=== PATIENT | female | born 1930 | race Caucasian/White ===

== ENCOUNTER → 2016-06-06 | Outpatient (CLI) | payer MEDICAID ==
[2016-06-06 16:46] LABS: AEROMONAS NOT DETECTED (NOT DETECTE); ASTROVIRUS NOT DETECTED (NOT DETECTE); CYCLOSPORA CAYETANENSIS NOT DETECTED (NOT DETECTE); E COLI O157 NOT DETECTED (NOT DETECTE); ENTEROAGGREGATIVE E COLI NOT DETECTED (NOT DETECTE); ENTEROPATHOGENIC E COLI NOT DETECTED (NOT DETECTE); ENTEROTOXIGENIC E COLI NOT DETECTED (NOT DETECTE); NOROVIRUS NOT DETECTED (NOT DETECTE); SAPOVIRUS NOT DETECTED (NOT DETECTE); SHIGA-LIKE TOXIN PROD. E COLI NOT DETECTED (NOT DETECTE); SHIGELLA/ENTEROINVASIVE E COLI NOT DETECTED (NOT DETECTE); VIBRIO CHOLERAE NOT DETECTED (NOT DETECTE)
[2016-06-06 19:14] LABS: STOOL OCCULT BLOOD POSITIVE (NEG)
== END ==
LOC: LAB 16:44
PROVIDERS: Emergency Medicine
DX: R19.7 Diarrhea, unspecified (principal); K92.1 Melena

== ENCOUNTER → 2016-10-23 | Outpatient (CLI) | payer MEDICARE, MEDICAID ==
[~2016-10-23] MED LIST: ACETAMINOPHEN &1 TA1 PO; ACETAMINOPHEN500 M3 PO; ADVAIR 250/5028 PUFF IN; CLARITIN 10MG T10 MG PO; HYDROXYZINE HCL25 M1 PO; IMODIUM A-D2 M3 PO; INVANZ 1 GM1 GM IM; LEXAPRO 10 MG T10 MG PO; LIQUITEARS 15 M15 M1 OP; LISINOPRIL 10MG10 MG PO; METFORMIN500 MG PO; NATURAL VITAM1000 MG PO; NORCO1 TAB PO; OMEPRAZOLE40 MG PO; PEPCID 20MG TAB20 MG PO; SYNTHROID 0.0.075 MG PO; TRAZODONE 50MG50 MG PO; TYLENOL325 MG PO; VENTOLIN H0.09 MG/AC IH; VOLTAREN75 MG PO; XANAX 0.25MG0.25 MG PO; ZOFRAN ODT4 MG PO
--- NOTE | 2016-10-23 15:14 | ST MODIFIED BARIUM SWALLOW ---
SUBJECTIVE-DYSPHAGIA Date: 10/23/16 Time: 1430 Eval Type: Initial Certification - Admitted Date: Primary Diagnosis: Reason for Consult: DYSPHAGIA Pt/Caregiver Concerns: COUGHING DURING MEALS Onset of symptoms- Symptoms have worsened? NO improved? NO resolved? NO since onset. Current Diet: MECHANICAL SOFT/NECTAR THICK LIQUIDS Allergies Coded Allergies: levofloxacin (Intermediate, I-ITCHING 09/09/16) Penicillins (Mild, 09/09/16) Sulfa (Sulfonamide Antibiotics) (Mild, 06/28/16) ciprofloxacin (From CIPRO) (Mild, 06/28/16) Home Medications Active Scripts Ertapenem Sodium (Invanz) 1 GM IM DAILY 7 Days Prov: 09/12/16 Alprazolam (Xanax 0.25MG) 0.25 MG PO BID 14 Days Prov: 09/12/16 Reported Medications Acetaminophen (Acetaminophen Extra Strength) 500 MG PO Q4HP PRN FEVER/PAIN HYDROCODONE/ACETAMINOPHEN (Hydrocodon-Acetaminophn 10-325) 1 TAB PO TIDP PRN PAIN Loperamide HCl (Imodium A-D) 2 MG PO Q3HP PRN DIARRHEA Ascorbic Acid (Vitamin C) 1,000 MG PO DAILY ALBUTEROL (Ventolin Hfa) 2 PUFF IH Q4HP PRN BREATHING Escitalopram Oxalate (Lexapro 10MG) 10 MG PO DAILY Famotidine (Pepcid 20MG Tablet) 20 MG PO DAILY HYDROXYZINE HCL (Hydroxyzine HCl) 25 MG PO TIDP PRN ITCHING LISINOPRIL (Lisinopril) 10 MG PO DAILY Omeprazole (Omeprazole 40MG) 40 MG PO DAILY Polyvinyl Alcohol (Liquitears 15 Ml) 15 ML OP DAILY FLUTICASONE/SALMETEROL (Advair 250-50 Diskus) 1 PUFF IN BID Ondansetron (Zofran 4MG Odt) 4 MG PO Q6HP PRN NAUSEA AND VOMITING TRAZODONE HCL (Trazodone HCl) 50 MG PO QHS Levothyroxine Sodium (Synthroid 0.075MG) 0.075 MG PO DAILY Loratadine (Claritin 10MG) 10 MG PO DAILY Metformin HCL (Metformin) 500 MG PO BID Is this assessment r/t stroke? No OBJECTIVE COMMUNICATION/COGNITION Barriers to communication/cog? Yes Orientation POS: Name. NEG: Place, Day, Date, Year, Other. Follows Commands POS: Follows 1-step commands. NEG: Follows 2-step commands. Able to remember swallow strategies? No Intelligibility Fair Barriers to communication: DECREASED ORIENTATION, DECREASED ABILITY TO FOLLOW DIRECTIONS ORAL-MOTOR STRUCTURE/FUNCTION Structure/Function WFL: Labial, Buccal, Lingual, Velar, Mandibular. Facial Asymmetry Right Laryngeal Function Could not check: Voluntary Cough, Throat Clearing. Vocal Quality Normal Dentition Edentulous RESPIRATORY STATUS/HISTORY Is resp status/hx a concern? No DYSPHAGIA SIGNS W/CONSISTENCY Any S/S of Dysphagia? Yes VIDEO SWALLOW REPORT Radiologist: Chad WELCH,Ayaan Jamil Level of consciousness: Alert Position (degrees): 90 ORAL STAGE Consistencies used for study: Thin, Hodges, Pudding, Mechanical Soft, Pill, MIXED - WFL: Bolus Formation:, Initiation of Swallow:. - No: Ari.spilled into pharynx, Oral Residue. PHARYNGEAL STAGE Consistencies used for study: Thin, Hodges, Pudding, Mechanical Soft, Pill, MIXED Delayed Swallow Reflex? No Epiglottic Closure WFL Penetration-Laryngeal Vestibul Yes - Aspiration? No Pharyngeal Residue? No ASSESSMENT/PLAN ASSESSMENT Impression Ms. Forbes, an 86 year old female, was referred for a MBS by her physician, Dr. Martinez. Ms. Forbes is currently on a mechanical soft diet with nectar thick liquids. Ms. Forbes was given the following consistencies: thins via straw and open cup, nectar, pudding, mechanical soft, mixed, and pill with nectar wash. The following signs of dysphagia were noted: penetration into laryngeal vestibule with thins. It is recommended that Ms. Forbes remain on current diet of mechanical soft diet with ground meats with sauce/gravy and nectar thick liquids. Ms. Forbes is at risk for aspiration of nectar thick liquids when given large bolus to take medication. It is recommended that ST at SNF follow up and make recommendations. PLAN Rehab Medicare G Code Plan Medicare/G Code eligible? 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
--- NOTE | 2016-10-23 16:36 | RADIOLOGY REPORT PS360 ---
ESOPHAGUS W/CINERADIOGRAPHY: 10/23/2016 2:05 PM CLINICAL HISTORY: Aspiration pneumonia, cough ORDERING PHYSICIAN: Alexander Martinez MD PATIENT AGE: 86 years COMPARISON: TECHNIQUE: Patient administered varying consistencies of barium contrast, while viewed in lateral position under real-time fluoroscopy with cine recording. FLUOROSCOPY TIME: 3 minutes and 20 seconds The study was performed in conjunction with speech pathologist. Please see that report & recommendations. FINDINGS: Patient was given varying consistencies of barium. This consisted of thin, nectar, pudding, mechanical soft, peel, mixed. There was mild vestibular penetration with the thin liquid IMPRESSION: Mild vestibular penetration with thin liquid, no hanane tracheal aspiration Please see speech pathologist report and recommendations.
== END ==
LOC: RAD 14:00
DX: R13.10 Dysphagia, unspecified (principal); R05 Cough
CPT/HCPCS: G8996; G8997; G8998

== ENCOUNTER → 2016-10-31 | Outpatient (CLI) | payer MEDICARE, MEDICAID ==
--- NOTE | 2016-10-31 14:49 | RADIOLOGY REPORT PS360 ---
LOWER LEG-LT HISTORY: Follow-up fracture HEALING OF LEFT TIBIA FX ORDERING PHYSICIAN: Samuel Ledezma MD PATIENT AGE: 86 years COMPARISON: 09/13/2016 FINDINGS: Healing nondisplaced mildly impacted transverse fracture involves the proximal shaft of the left tibia. The sclerotic fracture line is somewhat less air in. There is generalized osteopenia. Fracture line of the proximal fibula is barely discernible. IMPRESSION: Healing nondisplaced fracture proximal tibia and fibula
== END ==
LOC: RAD 13:51
DX: S82.192D Other fracture of upper end of left tibia, subsequent encounter for closed fracture with routine healing (principal)

== ENCOUNTER → 2016-11-16 | Outpatient (CLI) | payer MEDICARE, MEDICAID ==
--- NOTE | 2016-11-16 16:14 | CARDIOVASCULAR REPORT ---
"Venous Exam Indications: 782.3 Edema. IMPRESSIONS No evidence of deep or superficial vein thrombosis involving the left lower extremity History: Redness of the right lower extremity. Risk factors: Hypertension. Obese. Cellulitis. Renal disease. Left lower extremity venous duplex evaluation. Doppler flow study including spectral analysis, color and herbert scale imaging. Location: Vascular laboratory. Patient status: Outpatient. CRITICAL FINDINGS - Reported to: Ximena Del Real - Read back and verified. - 11/16/16 - 16:05 - LLE negative for DVT or SVT Tables: Venous flow and imaging: + + + + |Location |Overall |Flow properties | + + + + |Left common femoral |Patent |Normal phasicity; | | | |spontaneous; normal | | | |augmentation; compressible| + + + + |Left saphenofemoral junction|Patent |Compressible | + + + + |Left profunda femoral |Patent |Compressible | + + + + |Left femoral |Patent |Normal phasicity; | | | |spontaneous; normal | | | |augmentation; compressible| + + + + |Left greater saphenous |Patent |Normal phasicity; | | | |spontaneous; normal | | | |augmentation; compressible| + + + + |Left popliteal |Patent |Normal phasicity; | | | |spontaneous; normal | | | |augmentation; compressible| + + + + |Left posterior tibial |Difficult study|Compressible | + + + + |Left peroneal |Difficult study|Compressible | + + + + |Left gastrocnemius |Patent |Compressible | + + + + |Left soleal |Patent |Compressible | + + + + (Report amended ) Electronically signed by: Ayaan Bonilla [id number]"
== END ==
LOC: RT 15:08
DX: M79.605 Pain in left leg (principal); R22.42 Localized swelling, mass and lump, left lower limb

== ENCOUNTER → 2016-12-12 | Outpatient (CLI) | payer MEDICARE, MEDICAID ==
--- NOTE | 2016-12-12 13:52 | RADIOLOGY REPORT PS360 ---
LOWER LEG-LT HISTORY: Follow-up fracture UF X ORDERING PHYSICIAN: Samuel Ledezma MD PATIENT AGE: 86 years COMPARISON: 10/31/2016 FINDINGS: Overall no change healing proximal tibial fracture with obliques sclerosis involving the diaphyseal metaphyseal junction with good alignment. Proximal fibular fracture also noted unchanged. There is generalized osteopenia. Generalized vascular calcification. IMPRESSION: Overall no change healing nondisplaced proximal tib-fib fracture
== END ==
LOC: RAD 12:56
DX: S82.192D Other fracture of upper end of left tibia, subsequent encounter for closed fracture with routine healing (principal)